=== PATIENT | female | born 1990 | race Caucasian/White ===

== ENCOUNTER 2019-03-24 00:54 | Emergency (ER) | payer MEDICARE, OTHER ==
[~2019-03-24] VITALS: Ht 167.6 cm; Wt 66.7 kg
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
--- NOTE | 2019-03-24 02:50 | NUR ---
BLOOD DRAWN AND GIVEN TO LAB
[2019-03-24] MEDS ORDERED: IV NS 0.9% 1,000 ML BAG IV ONE (03:00)
--- NOTE | 2019-03-24 03:06 | NUR ---
Patient is resting comfortably in bed with eyes closed. Easily aroused. VSS. FAMILY AT BEDSIDE.
[2019-03-24 03:20] LABS: BASOPHILS % (AUTO) 0.1 % (0.0-2.0); EOSINOPHILS % (AUTO) 0.1 % (0.0-6.0); HEMATOCRIT 36 % (33-45); HEMOGLOBIN 12.1 g/dL (11.5-14.8); LYMPHOCYTES # (AUTO) 0.6 /CMM (0.8-4.8); LYMPHOCYTES % (AUTO) 4.1 % (20.0-44.0); MEAN CORPUSCULAR HGB CONC 34 g/dl (31.0-36.0); MEAN CORPUSCULAR VOLUME 93 fL (82-100); MONOCYTES # (AUTO) 0.6 /CMM (0.1-1.30); NEUTROPHILS # (AUTO) 14.6 /CMM (1.8-8.9); NEUTROPHILS % (AUTO) 91.7 % (43.0-81.0); PLATELET COUNT (AUTO) 198 /CMM (150-450); RED BLOOD CELL COUNT(AUTO) 3.83 MIL/uL (4.0-5.2); WHITE BLOOD COUNT (AUTO) 15.9 K/uL (4.3-11.0)
[2019-03-24 03:22] LABS: CALCIUM, SERUM 8.6 mg/dL (8.5-10.1); CREATININE 0.5 mg/dL (0.6-1.3); POTASSIUM 3.5 mmol/L (3.5-5.1)
[2019-03-24 03:24] VITALS: BP 96/55
[2019-03-24 03:27] LABS: ALBUMIN 3.5 g/dL (3.4-5.0); BILIRUBIN,DIRECT 0.1 mg/dL (0.0-0.2); BILIRUBIN,TOTAL 0.6 mg/dL (0.2-1.0); TOTAL PROTEIN, SERUM 7.3 g/dL (6.4-8.2)
--- NOTE | 2019-03-24 04:11 | NUR ---
IV removed. Catheter intact and site benign. Pressure and 4x4 applied to site. No bleeding noted.Patient discharged to home in stable condition. Written and verbal after care instructions given. Patient verbalizes understanding of instruction. PT TAKEN VIA PERSONAL WHEELCHAIR BY FAMILY.
== END 2019-03-24 04:39 | disposition home or self-care (01) ==
LOC: ER 00:54
DX: R11.2 Nausea with vomiting, unspecified (principal); Z98.890 Other specified postprocedural states
CPT/HCPCS: 36415; 80048; 80076; 83690; 85025; 96360; 99283; J7030